=== PATIENT | female | born 1940 | race African-American/Black ===

== ENCOUNTER 2019-03-24 20:49 | Emergency (ER) | payer BC, MEDICAID, OTHER ==
[~2019-03-24] VITALS: Ht 160 cm; Wt 79.0 kg
[~2019-03-24 20:49] MED LIST: CIPR500S3; OMEPRAZOLE
[2019-03-24] MEDS ORDERED: KETOROLAC 30MG/ML VIAL IV STA (23:22)
[2019-03-24 23:38] LABS: CHLORIDE 107 mEq/L (98-107)
[2019-03-24 23:40] LABS: BASOPHILS % 0.5 % (0.0-2.0); EOSINOPHILS % 2.1 % (0.0-5.0); HEMATOCRIT. 39.8 % (36.0-48.0); HEMOGLOBIN. 13.7 g/dL (12.0-16.0); LYMPHOCYTES % 33.5 % (20.0-50.0); MEAN CORPUSCULAR HEMOGLOBIN 32.4 pg (28.0-32.0); MEAN CORPUSCULAR VOLUME 93.9 fL (81.0-99.0); MEAN PLATELET VOLUME 9.6 fl (7.4-10.4); MONOCYTES % 12.4 % (2.0-8.0); NEUTROPHILS % 51.5 % (40.0-76.0); PLATELET 210 x1000/uL (130-400); RED BLOOD CELL COUNT 4.24 mill/uL (4.2-5.4); RED CELL DISTRIBUTION WIDTH 13.1 % (11.6-14.6)
[2019-03-25 05:36] VITALS: BP 147/71
== END 2019-03-25 05:46 | disposition home or self-care (01) ==
LOC: ER 20:49
DX: M79.641 Pain in right hand (principal); G57.91 Unspecified mononeuropathy of right lower limb; M54.30 Sciatica, unspecified side
CPT/HCPCS: 36415; 70450; 73030; 73130; 80053; 82962; 83605; 85025; 96374; 99284; J1885

== ENCOUNTER 2024-02-22 10:16 | Emergency (ER) | payer MEDICAID, BC ==
[~2024-02-22] VITALS: Ht 167.6 cm; Wt 83.0 kg
[2024-02-22 10:27] VITALS: O2SAT 99
[2024-02-22] MEDS: ACETAMINOPHEN 325MG TABLET PO ONE (12:30)
[2024-02-22 13:30] VITALS: BP 138/61; PULSE 68; RESP 18; TEMP 98.2
== END 2024-02-22 13:30 | disposition home or self-care (01) ==
LOC: ER 10:16
DX: R68.89 Other general symptoms and signs (principal); G31.89 Other specified degenerative diseases of nervous system; Y08.89XA Assault by other specified means, initial encounter; Y93.89 Activity, other specified; Y92.89 Other specified places as the place of occurrence of the external cause; Y99.8 Other external cause status
CPT/HCPCS: 71250; 74176; 99284

== ENCOUNTER 2025-09-05 22:03 | Emergency (ER) | payer BC, MEDICAID ==
[~2025-09-05] VITALS: Ht 165.1 cm; Wt 64.0 kg
[2025-09-05 22:52] VITALS: O2SAT 100
[2025-09-06] MEDS: ACETAMINOPHEN 325MG TABLET PO ONE (00:30)
[2025-09-06] MEDS: TETRACAINE 0.5% OPHTH DROPS 4ML BOTHEYE ONE (00:47)
[2025-09-06] MEDS: FLUORESCEIN SODIUM 1MG/STRIP RIGHTEYE ONE (00:47)
[2025-09-06] MEDS ORDERED: ERYT1OIN6 EACHEYE (00:49)
[2025-09-06] MEDS ORDERED: TOPUD PO (00:51)
[2025-09-06 01:12] VITALS: BP 131/60; PULSE 72; RESP 18; TEMP 36.9; O2SAT 100
== END 2025-09-06 01:14 | disposition home or self-care (01) ==
LOC: ER 22:03
DX: H57.8A3 Foreign body sensation, bilateral eyes (principal)
CPT/HCPCS: 99282